=== PATIENT | male | born 1995 | race Two or more races ===

== ENCOUNTER → 2020-04-15 | Outpatient (CLI) | payer SELFPAY | LOC: M LABSMTC 10:52 | PROVIDERS: ATTEND Pediatrics | DX: Z20.822 Contact with and (suspected) exposure to COVID-19 (principal) ==

== ENCOUNTER → 2020-07-30 | Outpatient (CLI) | payer OTHER ==
--- NOTE | 2020-07-30 09:10 | REP ---
INDICATION: ALINE BREAST TISSUE PAIN,POSSIBLE GYNECOMASTIA. COMPARISON: None. TECHNIQUE: Bilateral mammogram performed in the MLO and CC projections. Tomosynthesis performed. FINDINGS: The breasts are predominantly fatty with minimal fibroglandular tissue bilaterally. There is no evidence of mass, architectural distortion or clustered microcalcifications. IMPRESSION: BIRADS/ACR category 1, negative. No suspicious mass or clusters of microcalcifications. This mammogram was interpreted with the aid of an FDA-approved computer-aided detection system. The patient letter being requested is M2. RECOMMENDATION: Clinical follow-up. <Electronically signed by Erasto Campos > 07/30/20 [id number]
== END ==
LOC: M WHC 07:56
PROVIDERS: ATTEND Physician Assistant
DX: N64.4 Mastodynia (principal)

== ENCOUNTER → 2020-08-01 | Outpatient (CLI) | payer OTHER ==
[2020-08-01 14:56] LABS: HEMATOCRIT 44.8 % (42.0-52.0); HEMOGLOBIN 15.3 g/dl (13.5-17.5); MEAN CORPUSCULAR HEMOGLOBIN 29.8 pg (27.0-33.0); MEAN CORPUSCULAR HGB CONC 34.2 g/dl (32.0-36.5); MEAN CORPUSCULAR VOLUME 87.2 fl (80.0-96.0); PLATELET COUNT, AUTOMATED 201 10^3/uL (150-450); RED BLOOD COUNT 5.14 10^6/uL (4.30-6.10); WHITE BLOOD COUNT 6.8 10^3/uL (4.0-10.0)
[2020-08-01 15:33] LABS: ALBUMIN 4.4 GM/DL (3.2-5.2); ALT/SGPT 52 U/L (12-78); BILIRUBIN,DIRECT < 0.1 MG/DL (0.0-0.2); BILIRUBIN,TOTAL 0.4 MG/DL (0.2-1.0); BLOOD UREA NITROGEN 17 MG/DL (7-18); CALCIUM LEVEL 9.8 MG/DL (8.5-10.1); CARBON DIOXIDE LEVEL 32 MEQ/L (21-32); CHLORIDE LEVEL 105 MEQ/L (98-107); CREATININE FOR GFR 1.24 MG/DL (0.70-1.30); ESTRADIOL 28.2 PG/ML (<39.8); FOLLICLE STIMULATING HORMONE 3.2 mIU/mL (1.4-18.1); FREE T4 0.95 NG/DL (0.76-1.46); GLOMERULAR FILTRATION RATE > 60.0 (>60); GLUCOSE, FASTING 86 MG/DL (70-100); HCG, SERUM QUANTITATIVE < 1.0 MIU/ML; LUTEINIZING HORMONE 2.7 mIU/mL (1.5-9.3); POTASSIUM SERUM 3.9 MEQ/L (3.5-5.1); PROGESTERONE 0.32 NG/ML (0.28-1.22); PROLACTIN 6.2 NG/ML (2.1-17.7); SODIUM LEVEL 141 MEQ/L (136-145); TOTAL PROTEIN 7.6 GM/DL (6.4-8.2)
== END ==
LOC: M LAB 14:19
PROVIDERS: ATTEND Plastic Surgery Surgery of the Hand
DX: N62 Hypertrophy of breast (principal)

== ENCOUNTER 2020-11-15 06:07 | Observation (INO) | payer OTHER ==
[~2020-11-15] VITALS: Ht 182.9 cm; Wt 88.5 kg
[2020-11-15] VITALS (8 sets, daily range): BP systolic 119–137; BP diastolic 68–76
[~2020-11-15 06:07] MED LIST: LR 1,000 ML IV ONE; ceFAZolin SOD 2 GM in IV 1 EA IV ONE
[2020-11-15 06:45] LABS: HEMATOCRIT 45.5 % (42.0-52.0); HEMOGLOBIN 15.2 g/dl (13.5-17.5); MEAN CORPUSCULAR HEMOGLOBIN 29.6 pg (27.0-33.0); MEAN CORPUSCULAR HGB CONC 33.4 g/dl (32.0-36.5); MEAN CORPUSCULAR VOLUME 88.7 fl (80.0-96.0); PLATELET COUNT, AUTOMATED 204 10^3/uL (150-450); RED BLOOD COUNT 5.13 10^6/uL (4.30-6.10); WHITE BLOOD COUNT 5.7 10^3/uL (4.0-10.0)
[2020-11-15] MEDS ORDERED: ROCURONIUM BROMIDE 50 MG/5 ML VIAL As Ordered ONE ×3 (07:20→09:31)
[2020-11-15] MEDS ORDERED: LIDOCAINE 2% 100MG/5ML SDV (FOR ANES.) As Ordered ONE (07:20)
[2020-11-15] MEDS ORDERED: ONDANSETRON 4MG/2ML VIAL As Ordered ONE (07:20)
[2020-11-15] MEDS ORDERED: propofoL 200 MG/20 ML VIAL As Ordered ONE (07:20)
[2020-11-15] MEDS ORDERED: fentaNYL 250 MCG/5 ML INJECTION (J3010) As Ordered ONE (07:21)
[2020-11-15] MEDS ORDERED: MIDAZOLAM INJ 2MG/2ML VIAL (J2250 PER 1MG) As Ordered ONE (07:21)
[2020-11-15] MEDS ORDERED: dexameTHASONE 4 MG/ML 1ML VIAL (J1100 PER 1MG) As Ordered ONE (07:27)
[2020-11-15] MEDS ORDERED: BUPIVACAINE LIPOSOME/PF 1.3% 20ML VIAL (13.3MG/ML)(EXPAREL)(C9290 PER1MG) As Ordered ONE (07:32)
[2020-11-15] MEDS ORDERED: GENTAMICIN SULF 80MG/2ML VIAL As Ordered ONE (07:32)
[2020-11-15] MEDS ORDERED: LIDOCAINE 2% MDV 20ML VIAL As Ordered ONE (07:35)
[2020-11-15] MEDS ORDERED: EPINEPHrine INJ 1 MG/ML 1ML AMP As Ordered ONE (07:35)
[2020-11-15] MEDS ORDERED: LIDOCAINE 1% MDV 20ML VIAL As Ordered ONE (07:38)
[2020-11-15] MEDS ORDERED: SUGAMMADEX SODIUM 500 MG/5 ML VIAL (BRIDION) As Ordered ONE (08:22)
[2020-11-15] MEDS ORDERED: ACETAMINOPHEN 1000MG 100ML IV BTL (OFIRMEV) (J0131 PER 10MG) As Ordered ONE (08:22)
[2020-11-15] MEDS ORDERED: HYDROmorphone HCL 2 MG/ML 1ML VIAL (J1170) As Ordered ONE (08:37)
[2020-11-15] MEDS ORDERED: ePHEDrine SULFATE 25 MG/5 ML(5MG/ML) SYRINGE As Ordered ONE (09:29)
--- NOTE | 2020-11-15 11:02 | POST-OPPD ---
Postoperative Procedure Note Date Of Procedure: Nov 15, 2020 PREOPERATIVE DIAGNOSIS: Bilateral gynecomastia POSTOPERATIVE DIAGNOSIS: same PROCEDURE: Bilateral subcutaneous mastectomies for gynecomastia. SURGEON: Dr Pike CRUISE COORDINATOR: none ANESTHESIA: general ESTIMATED BLOOD LOSS: 50 cc FINDINGS: bilateral breast tissue SPECIMENS: Right breast 70 gm, Left breast 69 gm, liposuction fluid 350cc COMPLICATIONS: none REPLACED: none DRAINS: 15 FR round x 2 POSTOPERATIVE CONDITION: stable RANJANA PIKE DO Nov 15, 2020 11:02
--- NOTE | 2020-11-15 11:03 | ROOPDOC ---
[facility] Report Of Operation Report of Operation DATE OF PROCEDURE: 11/15/20 PREOPERATIVE DIAGNOSIS: Bilateral gynecomastia POSTOPERATIVE DIAGNOSIS: same PROCEDURE: Bilateral subcutaneous mastectomies for gynecomastia. SURGEON: Dr Pike TUNNEL ELASTIC OPERATOR ZIGZAG: none ANESTHESIA: general ESTIMATED BLOOD LOSS: 50 cc FINDINGS: bilateral breast tissue SPECIMENS: Right breast 70 gm, Left breast 69 gm, liposuction fluid 350cc COMPLICATIONS: none REPLACED: none DRAINS: 15 FR round x 2 POSTOPERATIVE CONDITION: stable DESCRIPTION OF PROCEDURE: This is a 25-year-old male who has bilateral gynecomastia diagnosed this year. The patient is complaining of persistent tenderness on both breasts which is bothering him. 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 Risks and benefits and alternatives discussed with the patient at length, and he is ready to proceed. DESCRIPTION OF PROCEDURE: On the day of surgery, he was marked in the upright position and then he was brought into the operating room, placed in supine position. Preoperative antibiotics given, sequential stockings placed on the lower calf. General anesthesia was induced. He was prepped and draped in the usual sterile fashion. We started our procedure with making a stab incision on the right lateral chest. Tumescent solution was infiltrated in the left breast, 300 mL total. Vaser Liposuction was used for melting down the fat and breaking out the scar tissue on the left side, and we used 3.7 three-ring cannula with 80% of the power. After that part of the procedure was completed, we used regular suction-assisted lipectomy to remove the rest of the liposuction. Then, we made an supra-areolar incision, and dissection of breast tissue started out using electrocautery under direct vision with a lighted retractor. The breast tissue is completely removed. The pectoralis muscle is in good condition. Then, 15 Fr round drain was placed through the initial stab incision that was done for the liposuction and placed in the cavity and then the wound was closed with interrupted #4-0 Monocryl sutures and # 5-0 Monocryl sutures running fashion. Then, we turned our attention to the left side. Tumescent solution was infiltrated in the left breast, 300 mL total. Vaser Liposuction was used for melting down the fat and breaking out the scar tissue on the left side, and we used 3.7 three-ring cannula with 80% of the power. After that part of the procedure was completed, we used regular suction-assisted lipectomy to remove the rest of the liposuction. Then, we made an supra-areolar incision, and dissection of breast tissue started out using electrocautery under direct vision with a lighted retractor. The breast tissue is completely removed. The pectoralis muscle is in good condition. Then, 15 Fr round drain was placed through the initial stab incision that was done for the liposuction and placed in the cavity and then the wound was closed with interrupted #4-0 Monocryl sutures and # 5-0 Monocryl sutures running fashion. Steri-Strips were applied to the both nipples. A bulky dressing and a compression dressing was placed. The patient was extubated in the operating room without any difficulty, transferred to the recovery room in stable condition. . RANJANA PIKE DO Nov 15, 2020 11:03
[2020-11-15] MEDS ORDERED: ONDANSETRON 4MG/2ML VIAL IV PRN ×2 (11:05→11:25)
[2020-11-15] MEDS ORDERED: PERCOCET 5MG/325MG TAB PO PRN (11:05)
[2020-11-15] MEDS ORDERED: ACETAMINOPHEN TAB 650MG DOSE (2X325MG) PO PRN (11:05)
[2020-11-15] MEDS ORDERED: LR 1,000 ML IV SCH (11:25)
[2020-11-15] MEDS ORDERED: oxyCODONE 5MG TAB PO PRN (11:25)
[2020-11-15] MEDS: fentaNYL 100 MCG/2 ML INJECTION (J3010) IV PRN ×2 (11:43→12:06)
[2020-11-15] MEDS ORDERED: LACRILUBE (AKWA TEARS) OPHTH OINT 3.5 GM As Ordered ONE (11:53)
[2020-11-15] MEDS: KETOROLAC TROMETHAMINE 10 MG TAB PO PRN ×2 (13:44→23:19)
[2020-11-15] MEDS: ceFAZolin SOD 1 GM in D5W MINI-BAG PLUS 50 ML IV SCH (15:14)
[2020-11-15] MEDS: PERCOCET 5MG/325MG TAB PO PRN ×2 (18:09→23:21)
[2020-11-15] MEDS: LR 1,000 ML IV SCH (19:35)
[2020-11-16] MEDS: ceFAZolin SOD 1 GM in D5W MINI-BAG PLUS 50 ML IV SCH ×2 (00:49→07:35)
[2020-11-16 01:00] VITALS: BP 127/82
[2020-11-16] MEDS: LR 1,000 ML IV SCH (03:27)
[2020-11-16] MEDS: PERCOCET 5MG/325MG TAB PO PRN ×2 (03:29→07:35)
[2020-11-16 06:00] VITALS: BP 115/74
[2020-11-16] MEDS: KETOROLAC TROMETHAMINE 10 MG TAB PO PRN (07:01)
--- NOTE | 2020-11-16 08:47 | IPNPDOC ---
Subjective General Date Seen: Nov 16, 2020 Subject Chief Complaint/History The patient is a 25-year-old male admitted with a reason for visit of Bilateral Breast Hypertrophy. Patient status post bilateral subcutaneous mastectomies for gynecomastia postop day 1. Tolerating diet pain control with p.o. medications. Patient had limited ambulation last night due to lightheadedness this morning cath has been resolved and he is feeling much better. Current Medications Current Medications Current Medications Medications (Trade) Dose Ordered Sig/Josh Route PRN Reason Start Time Stop Time Status Last Admin Dose Admin Acetaminophen (Tylenol Tab) 650 mg Q6H PRN PO MILD PAIN (PS 1-4) 11/15/20 11:05 Cefazolin Sodium 1 gm/Dextrose 50 ml @ 100 mls/hr Q8H IV 11/15/20 16:00 11/16/20 07:35 Fentanyl Citrate (Sublimaze) 25 mcg Q5MP PRN IV PAIN LEVEL 8-10 11/15/20 11:25 11/15/20 13:25 DC 11/15/20 12:06 Ketorolac Tromethamine (ToRADol) 10 mg Q6HP PRN PO MODERATE PAIN (PS 5-7) 11/15/20 11:05 11/20/20 11:04 11/16/20 07:01 Lactated Ringer's 1,000 ml @ 80 mls/hr [id number] IV 11/15/20 11:25 11/15/20 13:25 DC Lactated Ringer's 1,000 ml @ 80 mls/hr [id number] IV 11/15/20 19:35 11/16/20 03:27 Ondansetron HCl (ZOFRAN INJection) 4 mg Q4H PRN IV NAUSEA OR VOMITING 11/15/20 11:05 Ondansetron HCl (ZOFRAN INJection) 4 mg Q4HP PRN IV NAUSEA OR VOMITING 11/15/20 11:25 11/15/20 13:25 DC Oxycodone HCl (Roxicodone, Oxyir) 5 mg ASDIRECTED PRN PO PAIN LEVEL 1-4 11/15/20 11:25 11/15/20 13:25 DC 11/15/20 12:09 Oxycodone/ Acetaminophen (Percocet 5mg/ 325mg Tablet) 1 tab Q4HP PRN PO SEVERE PAIN (PS 8-10) 11/15/20 11:05 11/15/20 17:39 DC 11/15/20 13:43 Oxycodone/ Acetaminophen (Percocet 5mg/ 325mg Tablet) 2 tab Q4HP PRN PO SEVERE PAIN (PS 8-10) 11/15/20 17:35 11/16/20 07:35 Allergies Coded Allergies: No Known Allergies (Unverified , 11/08/20) Objective Physical Examination Examination GENERAL APPEARANCE:Patient seen, laying in bed, awake, alert, and oriented. Comfortable, in no acute distress. SKIN: Warm and moist. BREAST: Right and left soft, non-tender incisions intact. ROXIE drains: R 85cc/L 55cc/24 hr. NAC: Viable, warm, symmetrical, mild post-op ecchymosis, no expanding hematoma. HEENT: Normocephalic, atraumatic. [place] palpebral conjunctiva, anicteric sclerae. Lips and mucosa appear moist. NECK: Supple, no thyromegaly. No obvious jugular venous distention. LUNGS: Clear to auscultation bilaterally. No wheezing appreciated. HEART: No chest wall abnormalities. ABDOMEN: Abdomen is soft, non-tender, non-distended. EXTREMITIES: No edema identified. No calf tenderness. Vital Signs Vital Signs Date Time Temp Pulse Resp B/P (MAP) Pulse Ox O2 Delivery O2 Flow Rate FiO2 11/16/20 07:35 18 11/16/20 06:00 98.2 56 115/74 (88) 99 Room Air 11/15/20 21:35 2.0 I&Os I&O- Last 24 Hours up to 6 AM 11/16/20 06:00 Intake Total 3260 ml Output Total 2120 ml Balance 1140 ml Impression Bilateral gynecomastia. Patient status post subcutaneous mastectomies postop day 1. Stable for discharge. Dressings changed. Monitor ROXIE drains at home. Increase ambulation on daily basis.. Follow-up plastic surgery. Plan / VTE VTE Prophylaxis Ordered?: Yes RANJANA PIKE DO Nov 16, 2020 08:47
[2020-11-16] MEDS ORDERED: TRAM50TA2 PO (09:11)
== END 2020-11-16 12:42 | disposition home or self-care (01) ==
LOC: M SDC 06:07 → M MS5PR 11:03
PROVIDERS: ADMIT Plastic Surgery Surgery of the Hand; ATTEND Plastic Surgery Surgery of the Hand
DX: N62 Hypertrophy of breast (principal); G47.30 Sleep apnea, unspecified; F17.290 Nicotine dependence, other tobacco product, uncomplicated
CPT/HCPCS: 15877; 19300; 36415; 85027; 88300; 88305; J0131; J0171; J0690; J1100; J1170; J1580; J2250; J2405; J3010